=== PATIENT | female | born 1965 | race Caucasian/White ===

== ENCOUNTER → 2021-06-03 | Day surgery (SDC) | payer OTHER ==
[~2021-06-03] VITALS: Ht 165.1 cm; Wt 86.2 kg
[~2021-06-03] MED LIST: ADDERALL XR 3030 MG PO; CYMBALTA 30MG C30 MG PO; IBUPROFEN400 MG PO
[2021-06-03 09:12] LABS: HCT 41.9 % (37.0-47.0); HGB 13.4 g/dl (12.5-16.0); MCH 29.2 pg (25.0-31.0); MCV 91.3 fL (78.0-100.0); MPV 9.3 fL (6.0-9.5); RBC 4.59 M/uL (4.20-5.40); RDW 13.6 % (11.5-14.0); WBC 7.4 K/uL (4.0-10.5)
[2021-06-03 09:18] LABS: ALBUMIN 3.9 g/dL (3.4-5.0); BILIRUBIN - TOTAL 0.4 mg/dL (0.2-1.0); BUN/CREAT RATIO (CALC) 15.9 RATIO; CREATININE 0.63 mg/dL (0.51-0.95); GLOBULIN (CALCULATION) 3.6 g/dL; POTASSIUM 4.3 mmol/L (3.5-5.1); TOTAL PROTEIN 7.5 g/dL (6.4-8.2)
== END | disposition home or self-care (01) ==
LOC: FAS 08:02
PROVIDERS: Surgery
DX: K57.30 Diverticulosis of large intestine without perforation or abscess without bleeding (principal); K58.9 Irritable bowel syndrome, unspecified; Z88.0 Allergy status to penicillin; Z79.899 Other long term (current) drug therapy
CPT/HCPCS: 36415; 80053; J1610; J2250; J2704; J7120

== ENCOUNTER 2022-04-10 13:38 | Emergency (ER) | payer MEDICAID ==
[2022-04-10 14:33] LABS: BASOPHIL 1.1 % (0-2); HCT 39.1 % (37.0-47.0); HGB 12.5 g/dl (12.5-16.0); LYMPHOCYTE 23.7 % (15-48); MCH 29.8 pg (25.0-31.0); MCV 93.1 fL (78.0-100.0); MONOCYTE 5.9 % (0-12); MPV 9.5 fL (6.0-9.5); NEUTROPHIL 64.8 % (41-80); NRBC 0; PLT 263 K/uL (150-400); RDW 13.2 % (11.5-14.0); WBC 6.3 K/uL (4.0-10.5)
[2022-04-10 14:39] LABS: INR 0.94 (0.9-1.2); PROTHROMBIN TIME 12.3 SECONDS (11.9-13.9); PTT 29.1 SECONDS (24.9-34.6)
[2022-04-10 14:45] LABS: ALBUMIN 3.5 g/dL (3.4-5.0); BILIRUBIN - TOTAL 0.3 mg/dL (0.2-1.0); BUN/CREAT RATIO (CALC) 17.2 RATIO; CREATININE 0.64 mg/dL (0.51-0.95); GLOBULIN (CALCULATION) 3.6 g/dL; POTASSIUM 4.3 mmol/L (3.5-5.1); TOTAL PROTEIN 7.1 g/dL (6.4-8.2)
[2022-04-10 15:21] LABS: CORONAVIRUS 2019 SARS-COV-2 NEGATIVE (NEGATIVE); INFLUENZA A NAA NEGATIVE (NEGATIVE)
== END 2022-04-10 18:40 | disposition home or self-care (01) ==
LOC: FER 13:38
PROVIDERS: Internal Medicine
DX: R07.89 Other chest pain (principal); Z88.0 Allergy status to penicillin; Z20.822 Contact with and (suspected) exposure to COVID-19
CPT/HCPCS: 36415; 71045; 80053; 84484; 85025; 85610; 85730; 93005; U0002